=== PATIENT | female | born 1970 | race American Indian/Alaskan Native ===

== ENCOUNTER 2018-06-22 10:05 | Observation (INO) | payer MEDICARE, OTHER ==
[2018-06-15 19:04] VITALS: BMI 25.9
[2018-06-22] MEDS ORDERED: Lactated Ringer's 1,000 ML IV ONE (10:54)
[2018-06-22] MEDS ORDERED: Lidocaine Hydrochloride 1% 10 ML ONE (11:31)
--- NOTE | 2018-06-22 11:32 | CP.SDSHP ---
Same Day Surgery H & P - History Proposed Procedure: Uterine artery embolization Pre-Op Diagnosis: uterine fibroids - Previous Medical/Surgical History Cardiac: Hypertension - Allergies Allergies: Allergies No Known Allergies Allergy (Verified 06/22/18 10:15) - Physical Exam Vital Signs: Vital Signs 06/22/18 06/22/18 10:30 10:36 Temperature 98.5 F Pulse Rate 75 75 Respiratory 18 Rate Blood Pressure 121/72 O2 Sat by Pulse 100 Oximetry Mental Status: Alert & Oriented x3 Heart: WNL Lungs: WNL - Impression Impression: Ms. Aldana has symptomatic uterine fibroids complicated by dysfuncational bleeding and bulk related symptoms ( urinary urgency, pelvic pain). Pt had a MRI confirming multiple uterine fibroids. Pt was seen previously for uterine artery embolization and the procedure and associated risks/benefits were explained to the patient. Plan uterine artery embolization for symptomatic uterine fibroids. Pt. Evaluated Today:Candidate for Anesthesia & Procedure: Yes (ASA 3 Malampati 3) Short Stay Discharge - Short Stay Discharge Admitting Diagnosis/Reason for Visit: UTERINE FIBROIDS Disposition: HOME/ ROUTINE Referrals: Sean Bell MD [Primary Care Provider] -
--- NOTE | 2018-06-22 11:38 | CP.PCM.CON ---
History of Present Illness - History of Present Illness History of Present Illness: Ms. Aldana seen for symptomatic uterine fibroids. Pt has menorrhagia and polymenorrhea. She is anemic and takes iron supplements. Pt has also pelvic pain and pressure. She does to want to have myomectomy or hysterectomy. Pt would like to have uterine artery embolization. Pt says her bleeding is heavy for4 days and then continues for another couple of days. She changes her pads frequently. Pt also has pelvic pain and pressure that is worst during the onset of her menses. She is anemic and takes iron supplements. She denies any palpitations, shortness of breath. There is no history of bleeding disorders. Pt does not plan to have any kids. Past Patient History - Infectious Disease Hx of Infectious Diseases: None - Past Medical History & Family History Past Medical History?: Yes - Past Social History Smoking Status: Former Smoker - CARDIAC Hx Cardiac Disorders: No - PULMONARY Hx Respiratory Disorders: No Hx Bronchitis: Yes Hx Pneumonia: Yes - NEUROLOGICAL Hx Neurological Disorder: No - HEENT Hx HEENT Problems: No - RENAL Hx Chronic Kidney Disease: No - ENDOCRINE/METABOLIC Hx Endocrine Disorders: No - HEMATOLOGICAL/ONCOLOGICAL Hx Blood Disorders: Yes Hx Blood Transfusions: No Hx Blood Transfusion Reaction: No Hx Human Immunodeficiency Virus (HIV): Yes - INTEGUMENTARY Hx Dermatological Problems: No - MUSCULOSKELETAL/RHEUMATOLOGICAL Hx Musculoskeletal Disorders: No - GASTROINTESTINAL Hx Gastrointestinal Disorders: No - GENITOURINARY/GYNECOLOGICAL Hx Genitourinary Disorders: No - PSYCHIATRIC Hx Emotional Abuse: No Hx Physical Abuse: No - SURGICAL HISTORY Hx Surgeries: Yes Hx Section: Yes (x1) Other/Comment: ECTOPIC -LONG TIME AGO;C-SECTIONX1;TUMMY TUCK-2 YEARS AGO - ANESTHESIA Hx Anesthesia: Yes Hx Anesthesia Reactions: No Hx Malignant Hyperthermia: No Has any member of the family had a problem w/ anesthesia?: No Meds Allergies/Adverse Reactions: Allergies Allergy/AdvReac Type Severity Reaction Status Date / Time No Known Allergies Allergy Verified 06/22/18 10:15 Results - Vital Signs Recent Vital Signs: Last Vital Signs Temp 98.5 F 06/22/18 10:30 Pulse 75 06/22/18 10:36 Resp 18 06/22/18 10:30 BP 121/72 06/22/18 10:30 Pulse Ox 100 06/22/18 10:30 Assessment & Plan - Assessment and Plan (Free Text) Assessment: PT with symptomatic uterine fibroids complicated by menorrhagia and polymenorrhea. MRI of pelvis reviewed and pt is a candidate for uterine artery embolization. Pt should expect an improvent in symptoms. The procedure and associated risks/benefits were explained to the patient.
[2018-06-22] MEDS ORDERED: Iodixanol 320 MG/ML 100 ML BOTTLE IV ONE (11:46)
[2018-06-22] MEDS ORDERED: Midazolam 2 MG/2 ML VIAL ONE (11:55)
[2018-06-22] MEDS ORDERED: Propofol 10 mg/ml Inj (20 ML) ONE (11:55)
[2018-06-22] MEDS: Lactated Ringer's 1,000 ML IV SCH ×2 (13:08→21:30)
--- NOTE | 2018-06-22 13:08 | PCM.SURG1 ---
Surgeon's Initial Post Op Note - Surgeon's Notes Surgeon: Jose Marc MD [place] Counselor: NONE Type of Anesthesia: IV Sedation Pre-Operative Diagnosis: Uterine fibroids Operative Findings: Pelvic angio showed tortuous bilateral uterine arteries Post-Operative Diagnosis: Uterine Fibroids Operation Performed: Bilateral uterine artery embolization Specimen/Specimens Removed: none Estimated Blood Loss: EBL {In ML}: 10 Blood Products Given: N/A Drains Used: No Drains Post-Op Condition: Good Date of Surgery/Procedure: 06/22/18 Time of Surgery/Procedure: 13:00
[2018-06-22] MEDS ORDERED: HYDROmorphone 0.5 mg/0.5 ml ISec ONE ×2 (13:18→13:45)
[2018-06-22] MEDS: HYDROmorphone 0.5 mg/0.5 ml ISec IVP PRN ×2 (13:20→13:45)
[2018-06-22] MEDS ORDERED: HYDROmorphone 0.5 mg/0.5 ml ISec IVP PRN (13:26)
--- NOTE | 2018-06-22 14:18 | CP.PCM.HP ---
<Didier Mazariegos - Last Filed: 06/22/18 14:46> History of Present Illness - History of Present Illness History of Present Illness: 44 yo female patient with PMH of asymptomatic HIV, DUB, chronic anemia and multiple uterine fibroids seen and examined in PACU, pt is s/p Uterine artery embolization POD 0 due to symptomatic fibroids. Patient is somnolent but reports feeling fine and no complaints pain at this time. Patient tolerated well the procedure under general anesthesia (IV sedation). No CP, sob, nausea or vomiting, also denies abdominal pain or urinary sx at this time. PMD: Dr Sanchez PMH: HIV, Anemia, Leiomyomas, Menorrhagia Meds: chart reviewed PSH: C section 1992; Alisa 2015 FMH: non contributory NKDA SH: no etoh, tobacco or ilicit drugs Present on Admission - Present on Admission Any Indicators Present on Admission: No Review of Systems - Review of Systems All systems: reviewed and no additional remarkable complaints except (HPI) Past Patient History - Infectious Disease Hx of Infectious Diseases: None - Past Medical History & Family History Past Medical History?: Yes - Past Social History Smoking Status: Former Smoker - CARDIAC Hx Cardiac Disorders: No - PULMONARY Hx Respiratory Disorders: No Hx Bronchitis: Yes Hx Pneumonia: Yes - NEUROLOGICAL Hx Neurological Disorder: No - HEENT Hx HEENT Problems: No - RENAL Hx Chronic Kidney Disease: No - ENDOCRINE/METABOLIC Hx Endocrine Disorders: No - HEMATOLOGICAL/ONCOLOGICAL Hx Blood Disorders: Yes Hx Blood Transfusions: No Hx Blood Transfusion Reaction: No Hx Human Immunodeficiency Virus (HIV): Yes - INTEGUMENTARY Hx Dermatological Problems: No - MUSCULOSKELETAL/RHEUMATOLOGICAL Hx Musculoskeletal Disorders: No - GASTROINTESTINAL Hx Gastrointestinal Disorders: No - GENITOURINARY/GYNECOLOGICAL Hx Genitourinary Disorders: No - PSYCHIATRIC Hx Emotional Abuse: No Hx Physical Abuse: No - SURGICAL HISTORY Hx Surgeries: Yes Hx Section: Yes (x1) Other/Comment: ECTOPIC -LONG TIME AGO;C-SECTIONX1;ALISA DOMÍNGUEZ-2 YEARS AGO - ANESTHESIA Hx Anesthesia: Yes Hx Anesthesia Reactions: No Hx Malignant Hyperthermia: No Has any member of the family had a problem w/ anesthesia?: No Meds Allergies/Adverse Reactions: Allergies Allergy/AdvReac Type Severity Reaction Status Date / Time No Known Allergies Allergy Verified 06/22/18 10:15 Physical Exam - Constitutional Appears: No Acute Distress - Head Exam Head Exam: NORMAL INSPECTION - Eye Exam Eye Exam: EOMI, PERRL - Respiratory Exam Respiratory Exam: Clear to Auscultation Bilateral, NORMAL BREATHING PATTERN - Cardiovascular Exam Cardiovascular Exam: REGULAR RHYTHM, +S1, +S2 - GI/Abdominal Exam GI & Abdominal Exam: Normal Bowel Sounds, Soft. absent: Distended, Tenderness - Extremities Exam Extremities exam: Negative for: calf tenderness, pedal edema - Neurological Exam Additional comments: Sleepy but arousable to verbal stimuli - Skin Skin Exam: Dry, Warm Results - Vital Signs Recent Vital Signs: Last Vital Signs Temp 97.2 F L 06/22/18 13:15 Pulse 87 06/22/18 13:15 Resp 16 06/22/18 13:15 BP 118/79 06/22/18 13:15 Pulse Ox 100 06/22/18 13:15 Assessment & Plan - Assessment and Plan (Free Text) Assessment: 44 yo female patient with PMH of asymptomatic HIV, DUB, chronic anemia and multiple symptomatic uterine fibroids admitted s/p Uterine artery embolization POD 0. Plan: Uterine Fibroids - s/p Bilateral uterine artery embolization - admit for observation - NPO, will advance diet as tolerated - pain management with FINANCIAL SERVICES COUNSELOR - IV fluids - zofran if nausea/vomiting Chronic microcytic anemia - likely 2/2 to chronic blood loss - h/o menorrhagia - H/H 8.5/26.8 (06/08/18) - Feosol TID HIV, asymptomatic - controlled - adherent with treatment - resume home meds DVT ppx - scd for now Case discussed with Dr Aly Serrato PGY 2 <Luma Lu - Last Filed: 06/22/18 18:14> Results - Vital Signs Recent Vital Signs: Last Vital Signs Temp 99 F 06/22/18 16:48 Pulse 74 06/22/18 16:48 Resp 20 06/22/18 16:48 BP 151/68 H 06/22/18 16:48 Pulse Ox 91 L 06/22/18 16:48 Attending/Attestation - Attestation I have personally seen and examined this patient.: Yes I have fully participated in the care of the patient.: Yes I have reviewed all pertinent clinical information: Yes Notes (Text): Uterine Fibroids s/p Uterine Artery Embolization HIV asymptomatic Chronic Anemia due to Chronic Blood Loss from Uterine Bleeding - Uterine art Embolization done by IR Dr Marc' - will observe pt for pain mgt- Dilaudid FINANCIAL SERVICES COUNSELOR - cont Strilibid
[2018-06-22] MEDS: ceFAZolin 1 GM in Sodium Chloride 0.9% 100 ML IVPB SCH (21:14)
[2018-06-23] MEDS: Lactated Ringer's 1,000 ML IV SCH ×2 (00:25→05:30)
[2018-06-23 00:29] VITALS: RESP 18
[2018-06-23] MEDS: ceFAZolin 1 GM in Sodium Chloride 0.9% 100 ML IVPB SCH (01:00)
[2018-06-23] MEDS ORDERED: ceFAZolin 1 GM in Sodium Chloride 0.9% 100 ML IVPB SCH (05:00)
[2018-06-23 06:35] LABS: BASO % 0.5 % (0.0-2.0); EOS # 0.1 K/uL (0.0-0.7); EOS % 0.7 % (0.0-4.0); HEMOGLOBIN 8.4 g/dL (12.0-16.0); LYMPH # 1.3 K/uL (1.0-4.3); LYMPH % 14.6 % (20.0-40.0); MEAN CORPUSCULAR HEMOGLOBIN 20.5 pg (27.0-31.0); MEAN CORPUSCULAR HGB CONC 32.1 g/dL (33.0-37.0); MEAN PLATELET VOLUME 9.2 fl (7.2-11.7); MONO # 0.6 K/uL (0.0-0.8); MONO % 6.7 % (0.0-10.0); NEUT % 77.5 % (50.0-75.0); NRBC % 0.1 % (0.0-0.0); RBC 4.08 Mil/uL (3.80-5.20); RED CELL DISTRIBUTION WIDTH 19.8 % (11.5-14.5); WHITE BLOOD COUNT 9.1 K/uL (4.8-10.8)
[2018-06-23 06:46] LABS: ALB/GLOB RATIO 1.1 (1.0-2.1); ALBUMIN 3.4 g/dL (3.5-5.0); ALT/SGPT 22 U/L (9-52); AST/SGOT 15 U/L (14-36); BLOOD UREA NITROGEN 7 mg/dl (7-17); CALCIUM 8.6 mg/dL (8.4-10.2); GFR NON-AFRICAN AMERICAN > 60
[2018-06-23] MEDS ORDERED: Potassium Chloride 20 mEq ER Tab PO ONE (08:06)
--- NOTE | 2018-06-23 11:13 | CP.PCM.DIS ---
<Gladys Jimenez - Last Filed: 06/23/18 11:11> Provider - Provider Date of Admission: 06/22/18 13:48 Attending physician: Luma Lu MD Primary care physician: Sean Bell MD Time Spent in preparation of Discharge (in minutes): 30 Diagnosis - Discharge Diagnosis (1) Pelvic pain Status: Acute Hospital Course - Lab Results Lab Results: Most Recent Lab Values WBC 9.1 K/uL (4.8-10.8) 06/23/18 05:25 RBC 4.08 Mil/uL (3.80-5.20) 06/23/18 05:25 Hgb 8.4 g/dL (12.0-16.0) L 06/23/18 05:25 Hct 26.1 % (34.0-47.0) L 06/23/18 05:25 MCV 64.0 fl (81.0-99.0) L 06/23/18 05:25 MCH 20.5 pg (27.0-31.0) L 06/23/18 05:25 MCHC 32.1 g/dL (33.0-37.0) L 06/23/18 05:25 RDW 19.8 % (11.5-14.5) H 06/23/18 05:25 Plt Count 230 K/uL (130-400) 06/23/18 05:25 MPV 9.2 fl (7.2-11.7) 06/23/18 05:25 Neut % (Auto) 77.5 % (50.0-75.0) H 06/23/18 05:25 Lymph % (Auto) 14.6 % (20.0-40.0) L 06/23/18 05:25 Bladen % (Auto) 6.7 % (0.0-10.0) 06/23/18 05:25 Eos % (Auto) 0.7 % (0.0-4.0) 06/23/18 05:25 Baso % (Auto) 0.5 % (0.0-2.0) 06/23/18 05:25 Neut # (Auto) 7.0 K/uL (1.8-7.0) 06/23/18 05:25 Lymph # (Auto) 1.3 K/uL (1.0-4.3) 06/23/18 05:25 Bladen # (Auto) 0.6 K/uL (0.0-0.8) 06/23/18 05:25 Eos # (Auto) 0.1 K/uL (0.0-0.7) 06/23/18 05:25 Baso # (Auto) 0.0 K/uL (0.0-0.2) 06/23/18 05:25 Sodium 137 mmol/l (132-148) 06/23/18 05:25 Potassium 3.5 MMOL/L (3.6-5.0) L 06/23/18 05:25 Chloride 105 mmol/L (98-107) 06/23/18 05:25 Carbon Dioxide 24 mmol/L (22-30) 06/23/18 05:25 Anion Gap 12 (10-20) 06/23/18 05:25 BUN 7 mg/dl (7-17) 06/23/18 05:25 Creatinine 0.5 mg/dl (0.7-1.2) L 06/23/18 05:25 Est GFR ( Amer) > 60 06/23/18 05:25 Est GFR (Non-Af Amer) > 60 06/23/18 05:25 Random Glucose 90 mg/dL (65-105) 06/23/18 05:25 Calcium 8.6 mg/dL (8.4-10.2) 06/23/18 05:25 Total Bilirubin 0.6 mg/dl (0.2-1.3) 06/23/18 05:25 AST 15 U/L (14-36) 06/23/18 05:25 ALT 22 U/L (9-52) 06/23/18 05:25 Alkaline Phosphatase 64 U/L (38-126) 06/23/18 05:25 Total Protein 6.4 G/DL (6.3-8.2) 06/23/18 05:25 Albumin 3.4 g/dL (3.5-5.0) L 06/23/18 05:25 Globulin 3.1 gm/dL (2.2-3.9) 06/23/18 05:25 Albumin/Globulin Ratio 1.1 (1.0-2.1) 06/23/18 05:25 - Hospital Course Hospital Course: 44 yo female patient with PMH of asymptomatic HIV, DUB, chronic anemia and multiple symptomatic uterine fibroids admitted s/p Uterine artery embolization POD 1. Patient give cefazolin 2 doses post operatively. Patient discharged with doxycycline 100 mg BID x 7 days, motrin 600 mg Q8 40 tabs, colace 100 mg BID x 5 days, percocet 1 tab q 8 x 8 days. Patient to follow up with Dr. Marc - Date & Time of H&P Date of H&P: 06/23/18 Time of H&P: 11:12 Discharge Exam - Head Exam Head Exam: NORMAL INSPECTION - Eye Exam Eye Exam: Normal appearance Pupil Exam: NORMAL ACCOMODATION - ENT Exam ENT Exam: Mucous Membranes Moist - Respiratory Exam Respiratory Exam: NORMAL BREATHING PATTERN - Cardiovascular Exam Cardiovascular Exam: REGULAR RHYTHM, +S1, +S2 - Neurological Exam Neurological exam: Alert, Oriented x3 - Psychiatric Exam Psychiatric exam: Normal Affect Discharge Plan - Discharge Medications Prescriptions: Docusate Sodium [Colace] 100 mg PO Q12 5 Days #10 capsule Doxycycline Hyclate [Doryx] 100 mg PO Q12H 7 Days #14 cap Ibuprofen [Motrin] 600 mg PO Q8 #40 tab oxyCODONE/Acetaminophen [Percocet 5/325 mg Tab] 1 ea PO Q8H #24 tab - Follow Up Plan Condition: GOOD Disposition: HOME/ ROUTINE Instructions: Uterine Fibroids (DC), Uterus Artery Embolization (DC) Additional Instructions: follow up with your nurse advisor, primary MD 1 week ff up with Dr Marc as scheduled Referrals: Jose Marc MD [Staff Provider] - Sean Bell MD [Primary Care Provider] - <Luma Lu - Last Filed: 06/23/18 11:42> Provider - Provider Date of Admission: 06/22/18 13:48 Attending physician: Luma Lu MD Primary care physician: Sean Bell MD Hospital Course - Lab Results Lab Results: Most Recent Lab Values WBC 9.1 K/uL (4.8-10.8) 06/23/18 05:25 RBC 4.08 Mil/uL (3.80-5.20) 06/23/18 05:25 Hgb 8.4 g/dL (12.0-16.0) L 06/23/18 05:25 Hct 26.1 % (34.0-47.0) L 06/23/18 05:25 MCV 64.0 fl (81.0-99.0) L 06/23/18 05:25 MCH 20.5 pg (27.0-31.0) L 06/23/18 05:25 MCHC 32.1 g/dL (33.0-37.0) L 06/23/18 05:25 RDW 19.8 % (11.5-14.5) H 06/23/18 05:25 Plt Count 230 K/uL (130-400) 06/23/18 05:25 MPV 9.2 fl (7.2-11.7) 06/23/18 05:25 Neut % (Auto) 77.5 % (50.0-75.0) H 06/23/18 05:25 Lymph % (Auto) 14.6 % (20.0-40.0) L 06/23/18 05:25 Bladen % (Auto) 6.7 % (0.0-10.0) 06/23/18 05:25 Eos % (Auto) 0.7 % (0.0-4.0) 06/23/18 05:25 Baso % (Auto) 0.5 % (0.0-2.0) 06/23/18 05:25 Neut # (Auto) 7.0 K/uL (1.8-7.0) 06/23/18 05:25 Lymph # (Auto) 1.3 K/uL (1.0-4.3) 06/23/18 05:25 Bladen # (Auto) 0.6 K/uL (0.0-0.8) 06/23/18 05:25 Eos # (Auto) 0.1 K/uL (0.0-0.7) 06/23/18 05:25 Baso # (Auto) 0.0 K/uL (0.0-0.2) 06/23/18 05:25 Sodium 137 mmol/l (132-148) 06/23/18 05:25 Potassium 3.5 MMOL/L (3.6-5.0) L 06/23/18 05:25 Chloride 105 mmol/L (98-107) 06/23/18 05:25 Carbon Dioxide 24 mmol/L (22-30) 06/23/18 05:25 Anion Gap 12 (10-20) 06/23/18 05:25 BUN 7 mg/dl (7-17) 06/23/18 05:25 Creatinine 0.5 mg/dl (0.7-1.2) L 06/23/18 05:25 Est GFR ( Amer) > 60 06/23/18 05:25 Est GFR (Non-Af Amer) > 60 06/23/18 05:25 Random Glucose 90 mg/dL (65-105) 06/23/18 05:25 Calcium 8.6 mg/dL (8.4-10.2) 06/23/18 05:25 Total Bilirubin 0.6 mg/dl (0.2-1.3) 06/23/18 05:25 AST 15 U/L (14-36) 06/23/18 05:25 ALT 22 U/L (9-52) 06/23/18 05:25 Alkaline Phosphatase 64 U/L (38-126) 06/23/18 05:25 Total Protein 6.4 G/DL (6.3-8.2) 06/23/18 05:25 Albumin 3.4 g/dL (3.5-5.0) L 06/23/18 05:25 Globulin 3.1 gm/dL (2.2-3.9) 06/23/18 05:25 Albumin/Globulin Ratio 1.1 (1.0-2.1) 06/23/18 05:25 Attending/Attestation - Attestation I have personally seen and examined this patient.: Yes I have fully participated in the care of the patient.: Yes I have reviewed all pertinent clinical information, including history, physical exam and plan: Yes Notes (Text): Uterine Fibroids s/p Uterine Artery Embolization Asymptomatic HIV Chronic Anemia from Chronic Blood Loss from Abnormal Uterine Bleeding Pt was admitted for observation and pain management post Uterine Artery Embolization. No post op complication. Pain mgt with Dilaudid PATIENT FINANCIAL SERVICES COORDINATOR. Pain controlled. Will d/c home on PO Percocet and Po Doxycycline Pt to ff up with PMD , INFANTRY ASSAULTMAN and Dr Marc
[2018-06-23 13:12] VITALS: BP 127/75; PULSE 70; TEMP 97.3; O2SAT 99
--- NOTE | 2018-06-24 10:53 | VASCULAR ---
PROCEDURE: Date of procedure: 06/23/19 Procedure: 1. Bilateral uterine artery embolization 2. Selective catheterization of left uterine artery (3rd order catheterization) 3. Selective catheterization of the right uterine artery (3rd order catheterization) HISTORY: Uterine leiomyomas, dysfunctional bleeding, anemia TECHNIQUE: Following informed consent the procedure time-out, patient placed supine on the interventional table. Her right groin was prepped and draped in the usual sterile fashion. Following informed consent, the right common femoral artery was accessed with micropuncture technique and a guidewire was advanced under fluoroscopic guidance into the abdominal aorta. Through a 4 Turkish vascular sheath, a 4 Turkish cobra glide catheter was advanced over the wire and used to select the left internal iliac artery. A pelvic angiogram was performed in the MARGARET projection. The pelvic angiogram showed a very tortuous and dilated left uterine artery arising from the anterior division of the left internal iliac artery. The left uterine artery was then catheterized with a 4 Turkish cobra glide catheter. A selective left uterine artery angiogram was performed. Left uterine artery angiogram showed a hypovascular fibroid uterus. With a Cobra catheter position within the left urine arteries, the artery was embolized with a embospheres micro spheres measuring 500-700 microns until near stasis of blood was achieved both before and after 5-minutes waiting period. Post embolization angiogram showed the delayed filling of the left uterine artery. The cobra glide catheter was then positioned within the ipsilateral right internal iliac artery and a pelvic angiogram was performed in the SPARKS projection. Pelvic angiogram showed a dilated right uterine artery arising from the anterior division of the right internal iliac artery. Right uterine artery was catheterized with a cobra glide catheter. A selective right uterine artery angiogram was performed. Right uterine artery angiogram showed a hypervascular fibroid uterus. With a Cobra catheter position within the right uterine artery, the right uterine artery was embolized with embospheres microspheres measuring 500-700 microns in diameter on still near stasis multiples achieve both before and after 5-minute waiting period. Post embolization angiogram showed delayed filling of the right uterine artery. IMPRESSION: 1. Tortuous and dilated right and left renal artery which were successfully embolized with embospheres micro spheres measuring 500-700 microns. 2. The patient be admitted for observation and pain control. 3. The patient will be discharged with intervention Radiology followup for assessment of volume reduction and fiber infarction following embolization.
== END 2018-06-23 13:46 | disposition home or self-care (01) ==
LOC: H.OPSURG 10:05 → H.MEDSURG1 13:48
PROVIDERS: ADMIT Internal Medicine; ATTEND Internal Medicine
DX: D25.9 Leiomyoma of uterus, unspecified (principal); D50.0 Iron deficiency anemia secondary to blood loss (chronic); I10 Essential (primary) hypertension; N92.0 Excessive and frequent menstruation with regular cycle; Z87.01 Personal history of pneumonia (recurrent); Z87.891 Personal history of nicotine dependence; J40 Bronchitis, not specified as acute or chronic; R39.15 Urgency of urination; Z21 Asymptomatic human immunodeficiency virus [HIV] infection status
CPT/HCPCS: 36247; 36248; 36415; 37243; 80053; 85025; C1769; C1887; G0378; J0690; J1170; J1885; J2001; J2250; J2704; J3010; J7120; Q9967